=== PATIENT | male | born 1975 | race Caucasian/White ===

== ENCOUNTER → 2016-08-27 | Outpatient (CLI) | payer OTHER ==
[~2016-08-27] MED LIST: ALBUTEROL17 GM INH; ALPRAZOLAM PO; CETIRIZINE HCL10 MG PO; COUMADIN PO; COUMADIN10 MG PO; FERROUS SULFAT325 MG PO; FLOVENT DISKUS50 MCG; FUROSEMIDE40 MG PO; KCL PO; LOMOTIL WHITE2.5 M1 PO; LORTAB 7.5-3251 EACH PO; LOVENOX30 MG/0.3 INJ; MONTELUKAST SOD10 MG PO; NEURONTIN600 MG PO; PERCOCET 7.5-31 EACH PO; PHENERGAN25 M1 PO; PRINIVIL20 M1 PO; QUESTRAN POWDER4 GM PO; ROBAXIN 750750 M1 PO; SEROQUEL PO; SEROQUEL50 M1 PO; SYMBICORT INH; TIZANIDINE HCL4 M1 PO; VICTOZA0.6 MG/0.1 SUBQ; VITAMIN D50000 UNIT PO; WATER PILL PO; WELLBUTRIN100 MG PO
== END | disposition home or self-care (01) ==
LOC: CBAR 10:47
DX: Z01.812 Encounter for preprocedural laboratory examination (principal); E66.01 Morbid (severe) obesity due to excess calories
CPT/HCPCS: 36415; 84443; 86677; G0463

== ENCOUNTER → 2016-10-30 | Outpatient (CLI) | payer OTHER ==
--- NOTE | ~2016-10-30 | EKG ---
PATIENT: TAYLOR NELSON UNIT #: [id number] Ventricular Rate: 104 BPM Atrial Rate: 104 BPM P-R Interval: 142 ms QRS Duration: 102 ms Q-T Interval: 342 ms QTC Calculation(Bezet): 449 ms P [place]: 49 degrees Calculated R [place]: 55 degrees Calculated T [place]: 27 degrees Diagnosis Line: Sinus tachycardia Diagnosis Line: Otherwise normal ECG Diagnosis Line: When compared with ECG of 01-APR-2016 14:41, Diagnosis Line: No significant change was found Diagnosis Line: Confirmed by LORNE WEBSTER MD ([id number]) on Diagnosis Line: 11/01/2016 11:13:56 PM INTERPRETING MD: ELEANOR ZALDIVAR
--- NOTE | ~2016-10-30 | CR97 ---
[facility] A Service of [facility] & [facility] RADIOLOGY TEXT RESULTS PATIENT: TAYLOR NELSON JR LOCATION: [facility] : [birth year] UNIT #: [id number] AGE: [address]: Yoni Flores III, MD SEX: M ORDER DR: [id number] [facility] [address] [place], [place] [address] [id number] O MR#: [id number] Acc #: [id number] NAME: TAYLOR NELSON JR : 1975 SEX: M STUDY DATE/TIME: 10/30/2016 9:21 UNIT: [facility] ROOM: STUDY DESCRIPTION: CR Esophagram Attending Physician: Yoni Flores III, M.D. Referring Physician: Yoni Flores III, M.D. Ordering Physician: Yoni Flores III, M.D. Primary Care Physician: Flaco Puente M.D. MEDICAL IMAGING REPORT This report is preliminary unless electronic signature is present EXAM Barium esophagram INDICATIONS Morbid obesity. Preop for Lap-Band surgery. The fluoro time was 0.3 minutes. 18 images were taken. FINDINGS The thoracic esophagus is normal in course and caliber. There is a tiny sliding hiatal hernia. IMPRESSION Tiny sliding hiatal hernia otherwise unremarkable. Dictated by... Bharat Washington M.D. THIS IS AN ELECTRONICALLY VERIFIED REPORT Bharat Washington M.D. at 11/02/2016 7:25 AM Estuardo TD: 10/30/2016 17:02 JOB #: [id number] MEDICAL IMAGING REPORT Page 1 of 1 COPY
--- NOTE | ~2016-10-30 | CR63 ---
[facility] A Service of [facility] & [facility] RADIOLOGY TEXT RESULTS PATIENT: TAYLOR NELSON JR LOCATION: [facility] : [birth year] UNIT #: [id number] AGE: [address]: Yoni Flores III, MD SEX: M ORDER DR: [id number] [facility] [address] [facility] [place], [place] [address] [id number] O MR#: [id number] Acc #: [id number] NAME: TAYLOR NELSON JR : 1975 SEX: M STUDY DATE/TIME: 10/30/2016 8:49 UNIT: [facility] ROOM: STUDY DESCRIPTION: CR Chest 2 View Attending Physician: Yoni Flores III, M.D. Referring Physician: Yoni Flores III, M.D. Ordering Physician: Yoni Flores III, M.D. Primary Care Physician: Flaco Puente M.D. MEDICAL IMAGING REPORT This report is preliminary unless electronic signature is present EXAM Chest, 10/30/2016, [facility]. HISTORY 41-year-old male patient preop clearance for laparoscopic adjustable gastric band placement and possible paraesophageal hernia repair. Morbid obesity. COMPARISON Chest, 02/19/2015. FINDINGS Two-view chest demonstrates normal cardiac size and configuration. Hilar structures and mediastinal contours are preserved. Bilateral lungs are expanded and clear. Large body habitus noted. IMPRESSION Negative chest. Large body habitus. Dictated by... Scar Gamez M.D. THIS IS AN ELECTRONICALLY VERIFIED REPORT Scar Gamez M.D. at 10/30/2016 12:01 PM MATTHEW/loco TD: 10/30/2016 11:25 JOB #: [id number] MEDICAL IMAGING REPORT Page 1 of 1 COPY
[2016-10-30 09:54] LABS: HEMATOCRIT 46.2 % (38.0-50.0); HEMOGLOBIN 15.3 gm/dL (13.0-16.0); MEAN CELL VOLUME 89.4 FL (83-96); MEAN CORPUSCULAR HEMOGLOBIN 29.7 PG (28-34); MEAN CORPUSCULAR HGB CONC 33.2 g/dL (30-36); MEAN PLATELET VOLUME 7.7 FL (6.5-11.5); RED BLOOD COUNT 5.17 X10e (3.90-5.60); RED CELL DISTRIBUTION WIDTH 15.3 % (11.0-15.5); WHITE BLOOD COUNT 9.3 X10e3 (4.0-10.5)
[2016-10-30 10:53] LABS: ALBUMIN SERUM 3.9 g/dL (3.5-5.0); BILIRUBIN,TOTAL 0.4 mg/dL (0.2-2.0); BUN/CREATININE RATIO 8.33; CALCIUM SERUM 9.2 mg/dL (8.4-10.2); CREATININE SERUM 1.2 mg/dL (0.6-1.4); GLOM FILT RATE Estimated 75.2 mL/min (>60); POTASSIUM 3.6 mmol/L (3.5-5.1); PROTEIN TOTAL SERUM 6.6 g/dL (6.0-8.3)
== END | disposition home or self-care (01) ==
LOC: CRAD 08:38 → CAMB 09:30
PROVIDERS: Surgery
DX: Z01.818 Encounter for other preprocedural examination (principal)
CPT/HCPCS: 36415; 71020; 74220; 80053; 80061; 84443; 85027; 93005

== ENCOUNTER → 2016-11-11 | Day surgery (SDC) | payer OTHER ==
--- NOTE | ~2016-11-11 | OR ---
Unit #: [id number] #: [id number] Patient: TAYLOR NELSON JR [id number] [facility] [address] [facility]. [place], [place] [address] [id number] O MR#: [id number] NAME: TAYLOR NELSON ROOM: Date of Procedure: 11/11/2016 Admission Date: 11/11/2016 Surgeon: Yoni Flores III, M.D. : 1975 Attending Physician: Yoni Flores III, M.D. Primary Care Physician: Flaco Puente M.D. OPERATIVE REPORT PREOPERATIVE DIAGNOSIS Chronic morbid obesity. POSTOPERATIVE DIAGNOSIS Chronic morbid obesity. SECONDARY DIAGNOSIS Anterior paraesophageal hernia. PROCEDURES PERFORMED Laparoscopic adjustable gastric banding (AP large with low-profile port) and laparoscopic paraesophageal hernia repair. FERRY OPERATOR Dr. Percy Middleton. SPECIMENS None. COMPLICATIONS None apparent. ESTIMATED BLOOD LOSS Minimal. INDICATIONS FOR PROCEDURE This is a 41-year-old gentleman, who has chronic morbid obesity with a BMI of 47 and associated comorbidities of hypertension and diabetes. He has been through the bariatric program at [facility] and understands the risks and benefits of the procedure. DESCRIPTION OF PROCEDURE After consent was obtained, including the risks and benefits of slippage, erosion, port dysfunction, and possible failure of weight loss due to noncompliance, the patient was taken to the operating room and placed in the supine position. General anesthetic was administered and the abdomen was prepped and draped in standard surgical fashion. I began by making a 2 cm incision just above and to the left of the umbilicus. I used a Visiport to enter the peritoneal cavity without any difficulty. C02 pneumoperitoneum was then established. Next, I placed a Unit #: [id number] #: [id number] Patient: TAYLOR NELSON JR 5 mm port in the right upper quadrant, a 5 mm Nicky liver retractor in the subxiphoid region to provide exposure of the gastroesophageal junction. Next, a 10 mm port was placed in the left upper quadrant and a 5 mm port was placed in the left lateral subcostal region. I began by performing an examination of the GE junction to evaluate for a hiatal hernia. We then scored the peritoneal attachments overlying the angle of His. I then opened up the clear space in the gastrohepatic ligament, and then using 2 blunt graspers, I identified the small fat pad crossing over the right crura. I swept the fat anterior to the crura off the crura and using the pars flaccida, I created a retrogastric tunnel where the blunt grasper exited at the angle of His. Once I had made this tunnel safely, I then inserted an Allergan AP band into the abdominal cavity. This adjustable gastric band was then place around the upper part of the stomach and fastened and buckled anteriorly. We then tacked the lateral fundus over the band to the proximal pouch with 2 interrupted 0 Ethibond sutures. I then used a third stitch to imbricate the excess anterior stomach by going from the lesser curvature up towards where the last stitch was placed. We then had excellent hemostasis. I removed the Nicky liver retractor. We then removed the port tubing through the initial port incision. The rest of the ports were removed, and the pneumoperitoneum was released. I then left a small tail on the tubing. We then attached the port to the excess band tubing. We placed a piece of Prolene mesh along the back side of the port and used a Prolene stitch to anchor this mesh in place. We then trimmed the excess mesh so that just a small footprint of mesh was in place behind the port. I then inserted the tubing back into the abdominal cavity, and we placed the port into a small pocket that was made just inferior to where our initial port incision was made. The mesh was in direct contact with the fascia, and this will scar in place to hold the port in place. We then injected all the port sites with 0.25% plain Marcaine, and I reapproximated the skin edges with interrupted 4-0 Vicryl subcuticular sutures. Steri-strips were then applied. The patient tolerated the procedure without any problems and returned to the recovery room in stable condition. ADDENDUM After exposure of the GE junction, the patient was noted to have a small to medium size anterior paraesophageal hernia. As I was taking down the phrenoesophageal ligament, I encountered some bleeding from the gastric fat pad. I tried to achieve hemostasis with a clip carpenters; however, it continued to bleed. I then placed a [id number] 0 Ethibond suture to achieve hemostasis in that location. I then dissected out the paraesophageal hernia sac. Once I identified both the right and left crura, reapproximated the defect with an interrupted 0 Ethibond [id number] suture. We then proceeded with the case as listed above. Dictated by... Yoni Flores III, M.D. VCL/isela TD: 11/12/2016 02:12 JOB #: [id number] Unit #: [id number] #: [id number] Patient: LESLIE ORTIZTAYLOR Antonio OPERATIVE REPORT Page 1 of 1 X Yoni Flores III, MD PROCEDURE OPERATIVE NOTE
--- NOTE | ~2016-11-11 | CR7 ---
[facility] A Service of [facility] RADIOLOGY TEXT RESULTS PATIENT: TAYLOR NELSON JR LOCATION: [facility] #: [id number] : [birth year] UNIT #: [id number] AGE: [address]: Yoni Flores III, MD SEX: M ORDER DR: [id number] [facility] [address] [place], [place] [address] [id number] O MR#: [id number] Acc #: [id number] NAME: TAYLOR NELSON JR : 1975 SEX: M STUDY DATE/TIME: 11/11/2016 12:10 UNIT: [facility] ROOM: STUDY DESCRIPTION: CR Abdomen Single AP View Attending Physician: Yoni Flores III, M.D. Ordering Physician: Yoni Flores III, M.D. Primary Care Physician: Flaco Puente M.D. MEDICAL IMAGING REPORT This report is preliminary unless electronic signature is present EXAM Frontal abdomen, 11/11/2016. INDICATION Status post Lap-Band placement. Morbid obesity, shortness of air with activity today. TECHNIQUE Frontal abdomen was performed. COMPARISON No comparisons. FINDINGS The patient is status post Lap-Band placement. Phi angle is approximately 44 degrees. No air-fluid level proximal to the band. The bowel gas pattern is nonspecific but nonobstructive. IMPRESSION Status post Lap-Band placement. Phi angle of approximately 44 degrees. Dictated by... Franklin Sharma M.D. THIS IS AN ELECTRONICALLY VERIFIED REPORT Franklin Sharma M.D. at 11/12/2016 9:32 AM JAY/sandrita TD: 11/11/2016 14:30 JOB #: [id number] [facility] A Service [facility] RADIOLOGY TEXT RESULTS PATIENT: TAYLOR NELSON JR [id number] [birth year] UNIT #: [id number] AGE: [address]: Yoni Flores III, MD SEX: M ORDER DR: MEDICAL IMAGING REPORT Page 1 of 1 COPY
== END | disposition home or self-care (01) ==
LOC: CSUR 08:16
PROVIDERS: Surgery
DX: E66.01 Morbid (severe) obesity due to excess calories (principal); K44.9 Diaphragmatic hernia without obstruction or gangrene; J44.9 Chronic obstructive pulmonary disease, unspecified; E11.9 Type 2 diabetes mellitus without complications; I11.0 Hypertensive heart disease with heart failure; I50.9 Heart failure, unspecified; K21.9 Gastro-esophageal reflux disease without esophagitis; M19.90 Unspecified osteoarthritis, unspecified site; E78.00 Pure hypercholesterolemia, unspecified; E78.5 Hyperlipidemia, unspecified; E03.9 Hypothyroidism, unspecified; G43.909 Migraine, unspecified, not intractable, without status migrainosus; G47.30 Sleep apnea, unspecified; G89.29 Other chronic pain; Z68.42 Body mass index [BMI] 45.0-49.9, adult; Z87.891 Personal history of nicotine dependence; Z86.711 Personal history of pulmonary embolism; Z80.0 Family history of malignant neoplasm of digestive organs; Z88.2 Allergy status to sulfonamides; Z88.5 Allergy status to narcotic agent; Z88.8 Allergy status to other drugs, medicaments and biological substances; Z91.040 Latex allergy status; Z79.51 Long term (current) use of inhaled steroids; Z79.01 Long term (current) use of anticoagulants; Z79.891 Long term (current) use of opiate analgesic; Z79.899 Other long term (current) drug therapy; Z90.49 Acquired absence of other specified parts of digestive tract; Z98.890 Other specified postprocedural states
CPT/HCPCS: 74000; 82947; 85610; C1781; J0330; J0690; J1650; J1885; J2250; J2405; J2710; J3010

== ENCOUNTER → 2016-11-19 | Outpatient (CLI) | payer OTHER | END | disposition home or self-care (01) | LOC: CRC 09-28 13:00 | DX: I27.2 Other secondary pulmonary hypertension (principal) | CPT/HCPCS: 93306; 94761 ==